=== PATIENT | female | born 1960 | race Caucasian/White ===

== ENCOUNTER 2020-10-28 14:07 | Emergency (ER) | payer BC ==
[~2020-10-28] VITALS: Ht 160 cm; Wt 86.2 kg
[~2020-10-28 14:07] MED LIST: FIORINAL PO; LISI40TA4 PO
[2020-10-28 15:27] VITALS: BP_SYST 159
--- NOTE | 2020-10-28 15:32 | NUR ---
SENT TO [facility]
--- NOTE | 2020-10-28 15:39 | NUR ---
Pt left without being seen by doctor.
== END 2020-10-28 15:39 | disposition left against medical advice (07) ==
LOC: SED 14:07
DX: R10.31 Right lower quadrant pain (principal); Z53.21 Procedure and treatment not carried out due to patient leaving prior to being seen by health care provider